=== PATIENT | female | born 1980 | race Caucasian/White ===

== ENCOUNTER 2016-07-07 08:18 | Emergency (ER) | payer OTHER, BC ==
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
[2016-07-07 08:51] VITALS: TEMP 97.7; O2SAT 100
[2016-07-07 08:57] LABS: RBC URINE 5 /hpf (0-3); URINE BACTERIA RARE (<OCC); URINE BILIRUBIN NEGATIVE (NEGATIVE); URINE BLOOD 1+ (NEGATIVE); URINE COLOR Yellow (YELLOW); URINE GLUCOSE (UA) NORMAL (Normal); URINE HYALINE CAST 0-2 /lpf (0-2); URINE KETONE NEGATIVE (NEGATIVE); URINE LEUKOCYTE ESTERASE 1+ Leu/uL (Negative); URINE PROTEIN NEGATIVE (NEGATIVE); URINE UROBILINOGEN NORMAL mg/dL (0.2-1.0); WBC URINE 5 /hpf (0-5)
[2016-07-07 10:02] VITALS: BP 109/70; PULSE 76; RESP 16
--- NOTE | 2016-07-07 10:18 | RAD ---
PROCEDURE: Radiographs of the Lumbar Spine. HISTORY: pain COMPARISON: None available FINDINGS: BONES: Alignment appears satisfactory. No listhesis. No acute displaced fracture identified. DISC SPACES: Unremarkable. OTHER FINDINGS: Moderate constipation. IMPRESSION: No acute displaced fracture or subluxation identified. Moderate constipation.
== END 2016-07-07 10:04 | disposition home or self-care (01) ==
LOC: C.ER 08:18
DX: M54.5 Low back pain (principal); R10.30 Lower abdominal pain, unspecified; V43.52XA Car driver injured in collision with other type car in traffic accident, initial encounter